=== PATIENT | female | born 1970 | race Caucasian/White ===

== ENCOUNTER 2016-02-24 08:11 | Inpatient (IN) | payer SELFPAY ==
[2016-02-24] MEDS ORDERED: PANTOPRAZOLE 40 MG VIAL IV ONE (08:56)
[2016-02-24] MEDS ORDERED: NS 1,000 ML IV ONE ×2 (08:56)
[2016-02-24] MEDS ORDERED: ONDANSETRON HCL 4 MG/2 ML VIAL IV ONE (08:56)
[2016-02-24] MEDS ORDERED: GI COCKTAIL 30 ML DOSE PO ONE (08:56)
--- NOTE | 2016-02-24 08:58 | EDPRACDOC ---
<Ria Zamorano N - Last Filed: 02/24/16 11:23> - General Information Mode Of Arrival: Ambulance - History of Present Illness Onset: last night Pain Location: Reports: Epigastric, LUQ Pain Context: Reports: Spontaneous (AFTER DRINKING 1 BEER LAST NIGHT.) Pain Quality: Reports: Aching, Burning, Sharp, Stabbing Pain Radiation: Reports: Back (LEFT) Last Menstrual Period: 2 week : No Blood Type: Unknown Adult Abdominal History: Reports: Similar Pain (dx) (PANCREATITIS DUE TO ETOH ABUSE) Female Abdominal History: Reports: UTI Modifying Factors: improves with: Other (ETOH) Female Associated Signs & Symptoms: Reports: Nausea, Vomiting Oral Intake: Decreased Urinary Output: Normal <Mani Dozier - Last Filed: 02/24/16 14:43> - General Information Chief Complaint: Abdominal Pain Stated Complaint: ABD PAIN/ VOMITING Time Seen by Provider: 02/24/16 08:52 Home Medications: Home Medications No Home Medications 02/24/16 Allergies/Adverse Reactions: Allergies Allergy/AdvReac Type Severity Reaction Status Date / Time No Known Allergies Allergy Verified 02/24/16 08:53 - History of Present Illness HPI: PT PRESENTS TO ED WITH N/V EPIGASTRIC/LUQ ABD PAIN THAT IS SHARP STABBING ACHY AND BURNING RADIATES INTO HER BACK STARTED AFTER SHE DRANK A BEER LAST NIGHT. PT STATES SHE HAS H/O PANCREATITIS DUE TO ETOH ABUSE IN THE PAST AND THIS FEELS THE SAME. (Mani Dozier) ED Past Medical History - History Reviewed Yes Nurses notes reviewed and agree except as marked Travel Outside of [place] in the Last 3 Months?: No - Patient Medical History Neurological History: Reports: Seizures Cardiac History: Reports: Hypertension Respiratory History: Reports: COPD GI/ History: Reports: Urinary Tract Infection, Pancreatitis (admitted 06/25/12 SECONDARY TO ETOH USE/ABUSE) Psychological History: Reports: Substance Use Disorder (suboxone). Denies: Depression Systemic History: Reports: Diabetes. Denies: Cancer Surgical History: Denies: Hysterectomy - Family Medical History Reports: Cancer (MOTHER OF LUNG [place]), Cardiac Disorders (FATHER OF [place]) - Social Medical History Smoking Status: Heavy tobacco smoker (5 or more cigarettes/day or daily pipe/ cigar) Social History: Reports: Substance Use Disorder (suboxone) ETOH: Abuse (IN THE PAST) Substance Abuse: None Lives With: Other Lives In: Home <Mani Dozier - Last Filed: 02/24/16 14:43> EDM Review of Systems - Review of Systems ROS Negative Except as Marked: Yes All systems reviewed and were negative except as marked Constitutional: No Symptoms Reported. negative: Fever, Chills, Weakness, Fatigue, Loss of Appetite Eyes: No Symptoms Reported. negative: Redness, Blurred Vision, Double Vision, Discharge, Pain, Light Sensitive, Photophobia Ears: No Symptoms Reported. negative: Pain, Hearing Loss, Drainage, Ear Pulling Throat: No Symptoms Reported. negative: Pain, Swelling Nose: No Symptoms Reported. negative: Congestion, Bleeding, Discharge, Injection, Swelling, Deformity, Ecchymosis, Tender, Abrasion, Laceration Mouth: No Symptoms Reported. negative: Pain, Drooling Respiratory: No Symptoms Reported. negative: Cough, Brassy Cough, Barky Cough, Shortness of Breath, Wheezing, Hemoptysis Cardiovascular: No Symptoms Reported. negative: Chest Pain, Palpitations, Syncope, Edema, Orthopnea, PND, Skin Mottling, Cyanosis Gastrointestinal: Nausea, Pain, Vomiting. negative: Constipation, Diarrhea, Formula Intolerance, Melena Genitourinary: No Symptoms Reported. negative: Dysuria, Hematuria, Frequency, Discharge, Bleeding, Testicular Pain, Neurological: No Symptoms Reported. negative: Headache, Dizziness, Seizure, Numbness, Weakness, Speech Difficulty, Gait Difficulty Musculoskeletal: No Symptoms Reported. negative: Neck, Chestwall, Ribs, Back, Shoulder, Arm, Elbow, Forearm, Wrist, Hand, Pelvis, Hip, Femur, Knee, Leg, Ankle , Foot Integumentary: No Symptoms Reported. negative: Itching, Rash, Bruising, Wound Allergic/Immunologic: No Symptoms Reported. negative: Hives, Itching Hematologic: No Symptoms Reported. negative: Lymphadenopathy, Easy Bruising, Easy Bleeding Endocrine: No Symptoms Reported. negative: Weight Gain, Weight Loss Psychiatric: No Symptoms Reported. negative: Anxiety, Depression, Hallucinations, Insomnia, Suicidal <Mani Dozier - Last Filed: 02/24/16 14:43> - Physical Exam Constitutional: No apparent distress, Alert (Awake) Oriented to: Time, Person, Place - HEENT Head: Normal ( normocephalic) Eye Exam: Normal (PERRL, EOMI, Sclera white) Oropharynx: Normal (Pharynx:Moist without exudate,Gums-no swelling) Tympanic Membrane: Normal ENT EAC: Normal TMJ: Normal Nose: No Symptoms Reported (septum midline) Neck: Normal (FROM, trachea at midline) - Respiratory/Cardiovascular Respiratory: Normal - CTA (BBS clear to auscultation without adventitious sounds ) Cardiovascular: Normal (RRR without murmur, gallop or rub) - GI Auscultation: Normal (NABS) Palpation: Normal (Soft,No rebound or guarding, non distended) Tenderness: Moderate, LUQ, Epigastric [place]'s Sign: Negative - Musculoskeletal Back: Normal (Non-Tender) Extremities: Normal (Normal tone, Pulses 2+ No cyanosis or edema, FROM) - Integumentary Skin: Normal, Warm, Dry Lymphatics: Normal (no adenopathy) - Neurologic Memory Impaired: Normal Motor Function: Normal (Normal tone, Pulses 2+ No cyanosis or edema, FROM) Cranial Nerve: Normal (CN II-X11 intact sensation, strength 5/5) Cerebellar: Normal Mood Description: Normal Perception: Normal <Mani Dozier - Last Filed: 02/24/16 14:43> - Physical Exam Last recorded Vital Signs: Last Vital Signs Temp 98.9 F 02/24/16 14:27 Pulse 99 02/24/16 14:32 Resp 15 02/24/16 14:32 BP 169/88 02/24/16 14:32 Pulse Ox 97 02/24/16 14:32 Oxygen Pulse Oxygen Saturation 95 O2 Device Nasal Cannula Oxygen Flow Rate 2 Fraction of Inspired Oxygen ( FIO2) (Ria Zamorano) (Mani Dozier) - Re-evaluation Re-evaluation 2 Re-evaluation Time: 11:24 (ATTEMPTED PO, PT ABLE TO TAKE VERY LITTLE.) - Results 02/24/16 08:29 02/24/16 09:32 <Ria Zamorano - Last Filed: 02/24/16 11:23> - Differential Diagnosis Pancreatitis, PUD, UTI - Results 02/24/16 08:29 02/24/16 09:32 - EKG EKG #1 EKG Time: 09:17 -: Yes EKG interpreted by me Rate: bpm: 80 [place]: Normal Rhythm: NSR Block: None Hypertrophy: None ST: Normal <Mani Dozier - Last Filed: 02/24/16 14:43> - Results WBC 17.2 xk/uL (3.8-10.8) H 02/24/16 08:29 RBC 5.26 xM/uL (4.20-5.40) 02/24/16 08:29 Hgb 17.6 g/dL (12.0-16.0) H 02/24/16 08:29 Hct 51.9 % (36-47) H 02/24/16 08:29 MCV 99 fL (81-99) 02/24/16 08:29 MCH 33.5 pg (27-32) H 02/24/16 08:29 MCHC 33.9 g/dl (33-36) 02/24/16 08:29 RDW 14.4 % (11.5-14.5) 02/24/16 08:29 Plt Count 300 xk/uL (130-400) 02/24/16 08:29 MPV 8.6 fL (7.4-10.4) 02/24/16 08:29 Neut % (Auto) 70.3 % (45-76) 02/24/16 08:29 Lymph % (Auto) 21.5 % (17-44) 02/24/16 08:29 [place] % (Auto) 7.2 % (3-10) 02/24/16 08:29 Eos % (Auto) 0.5 % (0-5) 02/24/16 08:29 Baso % (Auto) 0.5 % (0-2) 02/24/16 08:29 Absolute Neuts (auto) 12.04 xk/uL (1.7-8.2) H 02/24/16 08:29 Absolute Lymphs (auto) 3.61 xk/uL (0.65-4.75) 02/24/16 08:29 Sodium 137 mEq/L (137-146) 02/24/16 09:32 Potassium 5.1 mEq/L (3.5-5.1) 02/24/16 09:32 Chloride 109 mEq/L (98-107) H 02/24/16 09:32 Carbon Dioxide 15 mMOL/L (22-33) L 02/24/16 09:32 Anion Gap 18 mEq/L (8-16) H 02/24/16 09:32 BUN 9 MG/DL (7-17) 02/24/16 09:32 Creatinine 0.60 MG/DL (0.52-1.04) 02/24/16 09:32 Estimated GFR (MDRD) > 60 mL/min (>=60) 02/24/16 09:32 Glucose 169 MG/DL (70-99) H 02/24/16 09:32 Calculated Osmolality 267 MOs/Kg (270-290) L 02/24/16 09:32 Calcium 8.5 MG/DL (8.4-10.2) 02/24/16 09:32 Corrected Calcium 8.9 MG/DL (8.4-10.2) 02/24/16 09:32 Phosphorus 3.7 MG/DL (2.5-4.5) 02/24/16 09:30 Magnesium 1.40 MG/DL (1.6-2.3) L 02/24/16 09:30 Total Bilirubin 1.8 MG/DL (0.2-1.3) H 02/24/16 09:32 AST 346 IU/L (14-36) H 02/24/16 09:32 ALT 300 IU/L (9-52) H 02/24/16 09:32 Alkaline Phosphatase 149 IU/L (38-126) H 02/24/16 09:32 Lactate Dehydrogenase 815 IU/L (313-618) H 02/24/16 09:32 Total Protein 7.0 G/DL (6.3-8.2) 02/24/16 09:32 Albumin 3.6 G/DL (3.5-5.0) 02/24/16 09:32 Lipase 36493 U/L (23-300) H 02/24/16 09:32 Urine Color [place] 02/24/16 09:20 Urine Clarity Clear 02/24/16 09:20 Urine pH 6.0 (5.0-8.0) 02/24/16 09:20 Ur Specific [place] 1.020 (1.003-1.035) 02/24/16 09:20 Urine Protein 1+ (NEG/TRACE) H 02/24/16 09:20 Urine Glucose (UA) Neg (NEGATIVE) 02/24/16 09:20 Urine Ketones 2+ (NEGATIVE) H 02/24/16 09:20 Urine Occult Blood Neg (NEG/TRACE) 02/24/16 09:20 Urine Nitrite Neg (NEGATIVE) 02/24/16 09:20 Urine Bilirubin Neg (NEGATIVE) 02/24/16 09:20 Urine Urobilinogen 0.2 MG/DL (0-1) 02/24/16 09:20 Ur Leukocyte Esterase Neg (NEGATIVE) 02/24/16 09:20 Urine RBC 5-10 (0-5) H 02/24/16 09:20 Urine WBC 2-5 (0-5) 02/24/16 09:20 Ur Epithelial Cells 4+ 02/24/16 09:20 Urine Bacteria 1+ (NEG/FEW) H 02/24/16 09:20 Urine Mucus Mod (NEG/OCC) H 02/24/16 09:20 Urine Opiates Screen *positive* (NEGATIVE) H 02/24/16 09:20 Ur Oxycodone Screen Neg (NEGATIVE) 02/24/16 09:20 Urine Methadone Screen Neg (NEGATIVE) 02/24/16 09:20 Ur Barbiturates Screen Neg (NEGATIVE) 02/24/16 09:20 Ur Tricyclics Screen Neg (NEGATIVE) 02/24/16 09:20 Ur Phencyclidine Scrn Neg (NEGATIVE) 02/24/16 09:20 Ur Amphetamines Screen Neg (NEGATIVE) 02/24/16 09:20 U Methamphetamines Scrn Neg (NEGATIVE) 02/24/16 09:20 Urine MDMA Screen Neg (NEGATIVE) 02/24/16 09:20 U Benzodiazepines Scrn Neg (NEGATIVE) 02/24/16 09:20 Urine Cocaine Screen Neg (NEGATIVE) 02/24/16 09:20 Ur THC Screen Neg (NEGATIVE) 02/24/16 09:20 Plasma/Serum Ethyl Alc % (<0.01) 02/24/16 09:32 Lab Results 02/24/16 02/24/16 02/24/16 09:32 09:32 09:30 WBC RBC Hgb Hct MCV MCH MCHC RDW Plt Count MPV Neut % (Auto) Lymph % (Auto) [place] % (Auto) Eos % (Auto) Baso % (Auto) Absolute Neuts (auto) Absolute Lymphs (auto) Sodium 137 Potassium 5.1 Chloride 109 H Carbon Dioxide 15 L Anion Gap 18 H BUN 9 Creatinine 0.60 Estimated GFR (MDRD) > 60 Glucose 169 H Calculated Osmolality 267 L Calcium 8.5 Corrected Calcium 8.9 Phosphorus 3.7 Magnesium 1.40 L Total Bilirubin 1.8 H AST 346 H ALT 300 H Alkaline Phosphatase 149 H Lactate Dehydrogenase 815 H Total Protein 7.0 Albumin 3.6 Lipase 83466 H Urine Color Urine Clarity Urine pH Ur Specific [place] Urine Protein Urine Glucose (UA) Urine Ketones Urine Occult Blood Urine Nitrite Urine Bilirubin Urine Urobilinogen Ur Leukocyte Esterase Urine RBC Urine WBC Ur Epithelial Cells Urine Bacteria Urine Mucus Urine Opiates Screen Ur Oxycodone Screen Urine Methadone Screen Ur Barbiturates Screen Ur Tricyclics Screen Ur Phencyclidine Scrn Ur Amphetamines Screen U Methamphetamines Scrn Urine MDMA Screen U Benzodiazepines Scrn Urine Cocaine Screen Ur THC Screen Plasma/Serum Ethyl Alc 02/24/16 02/24/16 02/24/16 09:20 09:20 08:29 WBC 17.2 H RBC 5.26 Hgb 17.6 H Hct 51.9 H MCV 99 MCH 33.5 H MCHC 33.9 RDW 14.4 Plt Count 300 MPV 8.6 Neut % (Auto) 70.3 Lymph % (Auto) 21.5 [place] % (Auto) 7.2 Eos % (Auto) 0.5 Baso % (Auto) 0.5 Absolute Neuts (auto) 12.04 H Absolute Lymphs (auto) 3.61 Sodium Potassium Chloride Carbon Dioxide Anion Gap BUN Creatinine Estimated GFR (MDRD) Glucose Calculated Osmolality Calcium Corrected Calcium Phosphorus Magnesium Total Bilirubin AST ALT Alkaline Phosphatase Lactate Dehydrogenase Total Protein Albumin Lipase Urine Color [place] Urine Clarity Clear Urine pH 6.0 Ur Specific [place] 1.020 Urine Protein 1+ H Urine Glucose (UA) Neg Urine Ketones 2+ H Urine Occult Blood Neg Urine Nitrite Neg Urine Bilirubin Neg Urine Urobilinogen 0.2 Ur Leukocyte Esterase Neg Urine RBC 5-10 H Urine WBC 2-5 Ur Epithelial Cells 4+ Urine Bacteria 1+ H Urine Mucus Mod H Urine Opiates Screen *positive* H Ur Oxycodone Screen Neg Urine Methadone Screen Neg Ur Barbiturates Screen Neg Ur Tricyclics Screen Neg Ur Phencyclidine Scrn Neg Ur Amphetamines Screen Neg U Methamphetamines Scrn Neg Urine MDMA Screen Neg U Benzodiazepines Scrn Neg Urine Cocaine Screen Neg Ur THC Screen Neg Plasma/Serum Ethyl Alc (Ria Zamorano) - Departure Disposition: Admit IP To This Hospital Education/Counseling Given To: Patient Education/Counseling Given Regarding: Diagnosis, Treatment, Prognosis Decision to Admit Time: 11:28 Decision to admit date: 02/24/16 Decision to admit: from ED - Physician Consulted Hospitalist Time Called: 11:25 Provider Called: Emmie Ricks Time [place] Returned Call: 11:28 <Ria Zamorano - Last Filed: 02/24/16 11:23> <Mani Dozier - Last Filed: 02/24/16 14:43> - Departure Condition: Stable Final Diagnosis: Alcoholic ketoacidosis, Hypertensive urgency Alcoholic pancreatitis Qualifiers: Chronicity: acute Acute pancreatitis complication: unspecified Qualified Code(s ): K85.20 - Alcohol induced acute pancreatitis without necrosis or infection Alcohol withdrawal syndrome Qualifiers: Complication of substance-induced condition: with unspecified complication Qualified Code(s): F10.239 - Alcohol dependence with withdrawal, unspecified CIWA - Clinical [place] Withdrawal Assessment Re-evaluation 1 Nausea & Vomitting: Inermittent Nausea with Dry Heaves Tremor: Not visible, but can be felt fingertip to fingertip Paroxysmal Sweats: No sweat visible Anxiety: Mildly anxious Tactile Disturbances: Very mild itching, pins and needles, burning or numbness Auditory Disturbances: None Visual Disturbances: None Headache, Fullness in Head: Not Present Orientation & clouding of Sensorium: Oriented and can do serial additions Total CIWA Score: 5 <Ria Zamorano - Last Filed: 02/24/16 11:23>
[2016-02-24] MEDS ORDERED: HYDROmorphone 1 MG INJECTION IV ONE ×2 (09:10→11:37)
[2016-02-24 09:18] LABS: AUTOMATED BASOPHIL 0.5 % (0-2); AUTOMATED EOSINOPHIL 0.5 % (0-5); AUTOMATED LYMPH 21.5 % (17-44); AUTOMATED MONOCYTE 7.2 % (3-10); AUTOMATED NEUTROPHIL 70.3 % (45-76); MPV 8.6 fL (7.4-10.4)
[2016-02-24 09:28] LABS: ALL NEG? NO
[2016-02-24 09:37] LABS: MDMA* NEG (NEGATIVE); METHAMPHETAMINES NEG (NEGATIVE); OXYCODONE NEG (NEGATIVE)
[2016-02-24 09:38] LABS: LEUKOCYTES/URINE NEG (NEGATIVE); NITRITE/URINE NEG (NEGATIVE); URINE OCCULT BLOOD NEG (NEG/TRACE)
[2016-02-24 09:52] LABS: BLOOD UREA NITROGEN 9 MG/DL (7-17); CALC CORRECTED 8.9 MG/DL (8.4-10.2); CALCIUM 8.5 MG/DL (8.4-10.2); CALCULATED OSMOLALITY 267 MOs/Kg (270-290); CHLORIDE 109 mEq/L (98-107); ETOH-MGDL < 10 mg/dL; GLUCOSE 169 MG/DL (70-99); SODIUM LEVEL 137 mEq/L (137-146)
[2016-02-24] MEDS ORDERED: DIAZEPAM 10 MG/2 ML TUBEX IV ONE (11:25)
[2016-02-24] MEDS ORDERED: LABETALOL 20 MG/4 ML SYRINGE IV ONE (11:36)
[2016-02-24] MEDS ORDERED: GLUCAGON 1 MG VIAL SQ PRN (12:20)
[2016-02-24] MEDS ORDERED: Aluminum;Magnesium;Simethicone 30 ML UDC PO PRN (12:20)
[2016-02-24] MEDS ORDERED: ONDANSETRON HCL 4 MG/2 ML VIAL IV PRN (12:20)
[2016-02-24] MEDS ORDERED: Albuterol/Ipratropium Neb 3 ML NEB NEB PRN (12:20)
[2016-02-24] MEDS ORDERED: MAGNESIUM HYDROXIDE 30 ML BOTTLE PO PRN (12:20)
[2016-02-24] MEDS ORDERED: DEXTROSE 25 GM/50 ML PFS IV PRN (12:20)
[2016-02-24] MEDS ORDERED: GLUCOSE (ORAL GEL) 15 GM TUBE PO PRN (12:20)
[2016-02-24] MEDS ORDERED: SODIUM CHLORIDE 0.9% 3 ML FLUSH FLUSH PRN (12:20)
[2016-02-24] MEDS ORDERED: TEMAZEPAM 15 MG CAP PO PRN (12:20)
[2016-02-24] MEDS ORDERED: ACETAMINOPHEN 325 MG/TAB TABLET PO PRN (12:20)
--- NOTE | 2016-02-24 12:26 | HISTPHYS ---
- History of Present Illness PT PRESENTS TO ED WITH N/V EPIGASTRIC/LUQ ABD PAIN THAT IS SHARP STABBING ACHY AND BURNING RADIATES INTO HER BACK STARTED AFTER SHE DRANK A BEER LAST NIGHT. PT STATES SHE HAS H/O PANCREATITIS DUE TO ETOH ABUSE IN THE PAST AND THIS FEELS THE SAME. Onset: last night Pain Location: Reports: Epigastric, LUQ Pain Context: Reports: Spontaneous (AFTER DRINKING 1 BEER LAST NIGHT.) Pain Quality: Reports: Aching, Burning, Sharp, Stabbing Pain Radiation: Reports: Back (LEFT) Last Menstrual Period: 2 week : No Blood Type: Unknown Adult Abdominal History: Reports: Similar Pain (dx) (PANCREATITIS DUE TO ETOH ABUSE) Female Abdominal History: Reports: UTI Modifying Factors: improves with: Other (ETOH) Female Associated Signs & Symptoms: Reports: Nausea, Vomiting Oral Intake: Decreased Urinary Output: Normal Above information per the emergency department. After discussing at length with the patient she told me that she drinks a 12 pack a day. She used to drink whiskey with her beer but she has stopped that. She has been drinking heavily for several weeks. - Medical History Cardiac History: Reports: Hypertension Respiratory History: Reports: COPD GI/ History: Reports: Urinary Tract Infection, Pancreatitis (Patient has had 4 adm at other hospitals and 3 adm at our hospital) Musculoskeletal History: Reports: No Significant History Systemic History: Reports: Diabetes. Denies: Cancer Neurological History: Reports: Seizures Psychological History: Reports: Substance Use Disorder (suboxone). Denies: Depression - Surgical History Reports: No Significant History. Denies: Hysterectomy - Medictions/Allergies Allergies No Known Allergies Allergy (Verified 02/24/16 08:53) Current Medication List: Reviewed Home Medications No Home Medications 02/24/16 - Family History Reports: Cancer (MOTHER OF LUNG [place]), Cardiac Disorders (FATHER OF [place]) - Social History Travel Outside of US in the Last 3 Months?: No Lives: Alone Smoking Status: Heavy tobacco smoker (5 or more cigarettes/day or daily pipe/ cigar) Social History: Reports: Substance Use Disorder (suboxone) - Review of Systems Constitutional: No Symptoms Reported (No Fever, chills, wt loss/gain, diaphoresis,fatigue/malaise.) Eyes: No Symptoms Reported (No blurry vision, visual changes, eye pain, or eye redness.) Ears: No Symptoms Reported (No ear pain or discharge) Nose: No Symptoms Reported (No nasal discharge/congestion or bleeding) Mouth: No Symptoms Reported (No oropharyngeal lesions or erythema) Throat/Neck: No Symptoms Reported (No throat pain or swelling.No oropharyngeal lesions or erythema.) Respiratory: No Symptoms Reported (No cough, wheezing, or shortness of breath.) Cardiovascular: No Symptoms Reported (No chest pain or palpitations.) Gastrointestinal: Nausea, Vomiting, Abdominal Pain Genitourinary: No Symptoms Reported (No dysuria or hematuria.) Neurological: No Symptoms Reported (No headache, dizziness, seizures, or focal weakness.) Hematologic: No Symptoms Reported (No chronic anemia, bleeding, or easy bruising.), Other (Lymphatics- no lymph node swelling or pain.) Endocrine: No Symptoms Reported (No thyroid issues, polyuria, or polydipsia.) Psychiatric: No Symptoms Reported (Fully oriented, with normal and appropriate affect.) - Physical Exam Vital Signs: Initial Vitals Temperature 98.9 F 02/24/16 08:15 Pulse Rate 88 02/24/16 08:15 Respiratory Rate 22 02/24/16 08:15 Blood Pressure 178/116 H 02/24/16 08:15 Pulse Oxygen Saturation 96 02/24/16 08:15 Constitutional: Distress (Moderate discomfort). negative: Well nourished, Well appearing Oriented to: Time, Person, Place - HEENT Head: Normal (normocephalic, atraumatic.), Other (No cervical lymphadenopathy. No supraclavicular lymphadenopathy. Neck: No palpable mass, supple , trachea midline.) Eye: Normal (pupils equal, reactive to light, and round; EOMI, Sclera white) Oropharynx: Normal (Pharynx: Moist without exudate,Gums-no swelling, No oropharyngeal lesions or erythema, Mucous membranes are dry.) Tympanic Membrane: Normal (no discharge) ENT EAC: Normal (No oropharyngeal lesions or erythema. Mucous membranes are dry. ) TMJ: Normal Nose: No Symptoms Reported (septum midline, Nares patent, without discharge or bleeding.) Respiratory: Normal - CTA (Clear to auscultation bilaterally. No wheezing, rales , rhonchi. Chest wall movements are symmetric. No use of accessory muscles to breathe.) Cardiovascular: Normal (RRR , Normal S1, S2. No murmurs, rubs, or gallops. PMI non-displaced. Carotids: no carotid bruits. No bradycardia or tachycardia. DP pulses 2+ bilaterally.) - GI Auscultation: Decreased Palpation: Normal (Soft,non distended,nontender. No hepatosplenomegaly.) Tenderness: Diffuse, Severe, Epigastric [place]'s Sign: Negative - Musculoskeletal Back: Normal (Non-Tender) Extremities: Normal (Normal tone, DP pulses 2+ bilaterally, No cyanosis or edema bilaterally, FROM bilaterally.) - Integumentary Skin: Normal (Clean, dry, and intact. No rashes. No lesions.) Lymphatics: Normal (No cervical lymphadenopathy. No supraclavicular lymphadenopathy.) - Neurologic Memory Impaired: Normal Motor Function: Normal (Motor 5/5 throughout.Normal tone, Pulses 2+ No cyanosis or edema, FROM) Cranial Nerve: Normal (CN II-XII intact sensation, strength 5/5) Cerebellar: Normal (Babinski: toes downgoing bilaterally. Intact Finger to nose. Sensory grossly intact to light touch. Intact rapid alternating movements bilaterally. No pronator drift.) Mood Description: Normal (Fully oriented. Normal and appropriate affect.) Perception: Normal (Normal and appropriate affect.) - Focused CV Perfusion Exam Vital Signs: Last Vital Signs Temp 98.9 F 02/24/16 08:15 Pulse 88 02/24/16 12:13 Resp 16 02/24/16 12:13 BP 199/106 H 02/24/16 12:13 Pulse Ox 94 02/24/16 12:13 - Lab Results Laboratory Results - last 24 hr 02/24/16 02/24/16 02/24/16 08:29 09:20 09:20 WBC 17.2 H RBC 5.26 Hgb 17.6 H Hct 51.9 H MCV 99 MCH 33.5 H MCHC 33.9 RDW 14.4 Plt Count 300 MPV 8.6 Neut % (Auto) 70.3 Lymph % (Auto) 21.5 [place] % (Auto) 7.2 Eos % (Auto) 0.5 Baso % (Auto) 0.5 Absolute Neuts (auto) 12.04 H Absolute Lymphs (auto) 3.61 Sodium Potassium Chloride Carbon Dioxide Anion Gap BUN Creatinine Estimated GFR (MDRD) Glucose Calculated Osmolality Calcium Corrected Calcium Total Bilirubin AST ALT Alkaline Phosphatase Lactate Dehydrogenase Total Protein Albumin Lipase Urine Color [place] Urine Clarity Clear Urine pH 6.0 Ur Specific [place] 1.020 Urine Protein 1+ H Urine Glucose (UA) Neg Urine Ketones 2+ H Urine Occult Blood Neg Urine Nitrite Neg Urine Bilirubin Neg Urine Urobilinogen 0.2 Ur Leukocyte Esterase Neg Urine RBC 5-10 H Urine WBC 2-5 Ur Epithelial Cells 4+ Urine Bacteria 1+ H Urine Mucus Mod H Urine Opiates Screen *positive* H Ur Oxycodone Screen Neg Urine Methadone Screen Neg Ur Barbiturates Screen Neg Ur Tricyclics Screen Neg Ur Phencyclidine Scrn Neg Ur Amphetamines Screen Neg U Methamphetamines Scrn Neg Urine MDMA Screen Neg U Benzodiazepines Scrn Neg Urine Cocaine Screen Neg Ur THC Screen Neg Plasma/Serum Ethyl Alc 02/24/16 02/24/16 09:32 09:32 WBC RBC Hgb Hct MCV MCH MCHC RDW Plt Count MPV Neut % (Auto) Lymph % (Auto) [place] % (Auto) Eos % (Auto) Baso % (Auto) Absolute Neuts (auto) Absolute Lymphs (auto) Sodium 137 Potassium 5.1 Chloride 109 H Carbon Dioxide 15 L Anion Gap 18 H BUN 9 Creatinine 0.60 Estimated GFR (MDRD) > 60 Glucose 169 H Calculated Osmolality 267 L Calcium 8.5 Corrected Calcium 8.9 Total Bilirubin 1.8 H AST 346 H ALT 300 H Alkaline Phosphatase 149 H Lactate Dehydrogenase 815 H Total Protein 7.0 Albumin 3.6 Lipase 16624 H Urine Color Urine Clarity Urine pH Ur Specific [place] Urine Protein Urine Glucose (UA) Urine Ketones Urine Occult Blood Urine Nitrite Urine Bilirubin Urine Urobilinogen Ur Leukocyte Esterase Urine RBC Urine WBC Ur Epithelial Cells Urine Bacteria Urine Mucus Urine Opiates Screen Ur Oxycodone Screen Urine Methadone Screen Ur Barbiturates Screen Ur Tricyclics Screen Ur Phencyclidine Scrn Ur Amphetamines Screen U Methamphetamines Scrn Urine MDMA Screen U Benzodiazepines Scrn Urine Cocaine Screen Ur THC Screen Plasma/Serum Ethyl Alc - Assessment (1) Alcoholic pancreatitis K85.20 - ALCOHOL INDUCED ACUTE PANCREATITIS WITHOUT NECROSIS OR INFCT Acute Qualifiers: Chronicity: acute Acute pancreatitis complication: unspecified Qualified Code(s): K85.20 - Alcohol induced acute pancreatitis without necrosis or infection Admit patient to hospital hydrate and pain control. Start with clear liquids advance as tolerated when able. (2) Alcohol withdrawal syndrome F10.239 - ALCOHOL DEPENDENCE WITH WITHDRAWAL, UNSPECIFIED Acute Present on Admission: Yes Qualifiers: Complication of substance-induced condition: with unspecified complication Qualified Code(s): F10.239 - Alcohol dependence with withdrawal, unspecified Start alcohol withdrawal protocol patient very shaky with an elevated blood pressure. (3) Alcoholic ketoacidosis E87.2 - ACIDOSIS Acute Present on Admission: Yes Hydrate and treat underlying cause. (4) Hypertensive urgency I16.0 - HYPERTENSIVE URGENCY Acute Present on Admission: Yes Start IV metoprolol and hydralazine for blood pressure control. (5) Diabetes mellitus type 2 E11.9 - TYPE 2 DIABETES MELLITUS WITHOUT COMPLICATIONS Active Present on Admission: Yes Continue treatment with home medication and plan (6) Tobacco user Z72.0 - TOBACCO USE Active Present on Admission: Yes Will counseled to quit smoking once patient more stable (7) Alcohol abuse F10.10 - ALCOHOL ABUSE, UNCOMPLICATED Acute Present on Admission: Yes Patient needs to quit alcohol immediately. - Plan Due to the presence of and/or the risk of deterioration, my attendance to this patient required critical care time, including assessment/reassessment, documentation, ordering and interpreting ancillary studies, discussion with staff and consultants,patient and family, and excludes time spent on separately billable procedures. In summary, this patient is acutely and critically ill. The patient requires treatment of vital organ failure and measures to prevent further life-threatening deterioration of condition. Case Care Discussed with: Patient, Nursing Staff Total Time: 55 minutes Critical Care: Yes [place] Time (>50% in counseling/coordination): No
[2016-02-24] MEDS ORDERED: LORAZEPAM 1 MG TAB PO PRN ×2 (12:27)
[2016-02-24] MEDS ORDERED: DICYCLOMINE 20 MG TAB PO PRN (12:27)
[2016-02-24] MEDS ORDERED: LORAZEPAM 2 MG/ML VIAL IV PRN ×3 (12:27)
[2016-02-24] MEDS: NS 1,000 ML IV SCH ×3 (12:45→23:58)
[2016-02-24] MEDS ORDERED: LORAZEPAM 1 MG TAB PO SCH (13:00)
[2016-02-24] MEDS ORDERED: Alcohol Withdrawal Scale Orders XX SCH (13:00)
[2016-02-24] MEDS: MORPHINE 2 MG/ML INJECTION IV PRN ×3 (13:07→20:26)
[2016-02-24] MEDS: LORAZEPAM 1 MG TAB PO SCH ×3 (13:08→23:51)
[2016-02-24] MEDS: NICOTINE 21 MG PATCH TOP SCH (13:09)
[2016-02-24] MEDS ORDERED: hydrALAZINE 20 MG/ML VIAL IV PRN (14:19)
[2016-02-24] MEDS: FOLIC ACID 1 MG, THIAMINE 100 MG, VITAMINS, MULTIPLE 10 ML in NS 1,000 ML IV SCH ×4 (14:53)
[2016-02-24] MEDS: BuPROPion 150 MG SR TAB PO SCH (14:54)
[2016-02-24] MEDS ORDERED: Vaccine Screening Complete SCH (16:00)
[2016-02-24] MEDS: REGULAR INSULIN 100 UNITS/ML - 3 ML VIAL SQ SCH ×2 (18:12→23:59)
[2016-02-24] MEDS: SODIUM CHLORIDE 0.9% 3 ML FLUSH FLUSH SCH (18:17)
[2016-02-24] MEDS: ENOXAPARIN 40 MG/0.4 ML PFS SQ SCH (18:17)
[2016-02-24] MEDS: METOPROLOL TARTRATE 100 MG TAB PO SCH (20:19)
[2016-02-25] MEDS: MORPHINE 2 MG/ML INJECTION IV PRN ×3 (01:53→07:49)
[2016-02-25] MEDS: NS 1,000 ML IV SCH ×4 (05:08→17:41)
[2016-02-25] MEDS: SODIUM CHLORIDE 0.9% 3 ML FLUSH FLUSH SCH ×2 (05:09→17:34)
[2016-02-25] MEDS: LORAZEPAM 1 MG TAB PO PRN (05:35)
[2016-02-25] MEDS: REGULAR INSULIN 100 UNITS/ML - 3 ML VIAL SQ SCH ×3 (05:55→17:32)
[2016-02-25 06:20] LABS: AUTOMATED BASOPHIL 0.4 % (0-2); AUTOMATED EOSINOPHIL 1.1 % (0-5); AUTOMATED MONOCYTE 7.9 % (3-10); AUTOMATED NEUTROPHIL 70.6 % (45-76)
[2016-02-25 06:40] LABS: BLOOD UREA NITROGEN 8 MG/DL (7-17); CALC CORRECTED 9.2 MG/DL (8.4-10.2); CALCULATED OSMOLALITY 256 MOs/Kg (270-290); CHLORIDE 108 mEq/L (98-107); GLUCOSE 90 MG/DL (70-99); SODIUM LEVEL 134 mEq/L (137-146); TOTAL PROTEIN 5.8 G/DL (6.3-8.2)
[2016-02-25] MEDS: METOPROLOL TARTRATE 100 MG TAB PO SCH ×2 (07:49→20:46)
[2016-02-25] MEDS: BuPROPion 150 MG SR TAB PO SCH (07:49)
[2016-02-25] MEDS ORDERED: HYDROmorphone 1 MG INJECTION IV ONE (08:42)
[2016-02-25] MEDS: LORAZEPAM 1 MG TAB PO SCH ×3 (08:45→17:33)
[2016-02-25] MEDS: HYDROmorphone 1 MG INJECTION IV PRN ×3 (11:09→20:47)
[2016-02-25] MEDS: NICOTINE 21 MG PATCH TOP SCH (11:36)
[2016-02-25] MEDS ORDERED: VITAMINS,PRENATAL TABLET PO SCH (12:00)
[2016-02-25] MEDS ORDERED: THIAMINE 100 MG TAB PO SCH (12:00)
[2016-02-25] MEDS: FOLIC ACID 1 MG, THIAMINE 100 MG, VITAMINS, MULTIPLE 10 ML in NS 1,000 ML IV SCH ×4 (13:13)
--- NOTE | 2016-02-25 17:09 | GENMEDPROG ---
Subjective Note: Patient still with some pain lipase is decreasing. She is tolerating sips of clears. Notes Reviewed: Yes Events from last night noted and discussed with Clinical Staff Current Medication List: Reviewed Currently: Reports: Abdominal Pain. Denies: Nausea and Vomiting DVT Prophylaxis: Yes - Physical Examination Vital Signs and I&O: Last Vital Signs Temp 98.7 F 02/25/16 15:43 Pulse 85 02/25/16 16:06 Resp 16 02/25/16 15:43 BP 131/88 02/25/16 15:43 Pulse Ox 94 02/25/16 15:43 Oxygen Pulse Oxygen Saturation 94 O2 Device Room Air Oxygen Flow Rate 2 Fraction of Inspired Oxygen ( FIO2) Intake & Output 02/22/16 02/23/16 02/24/16 02/25/16 23:59 23:59 23:59 23:59 Intake Total 3858 4958 Output Total 700 2050 Balance 3158 2908 Patient's weight 58.695 kg 59.08 kg General: Alert HEENT: Normal (Normocephalic, atraumatic;EOMI.Sclera white, Nares patent, without discharge or bleeding. No oropharyngeal lesions or erythema. Mucous membranes are dry.) Neck: Non-tender, Full range of motion, Normal Trachea alignment, Normal inspection (No cervical lymphadenopathy. No supraclavicular lymphadenopathy.), No Masses palpable, Supple Lymphatics: Normal (No cervical lymphadenopathy. No supraclavicular lymphadenopathy.) Respiratory: Normal - CTA (Clear to auscultation bilaterally. No wheezing, rales , rhonchi. Chest wall movements are symmetric. No use of accessory muscles to breathe.) Cardiovascular: Regular rate and rhythm (No bradycardia or tachycardia), Normal S1, No Gallops,Rubs/Murmurs, Normal S2, Good Pedal Pulses (DP pulses 2+ bilaterally) GI: Soft, Tenderness. negative: Normal bowel sounds, Rebound, Guarding Extremities/Musculoskeletal: Normal pulses (DP pulses 2+ bilaterally) Skin: Warm,Dry and Intact, No rashes, No significant lesion Neurological: Strength at 5/5 X4 ext (Motor 5/5 throughout.), Normal tone, Cranial nerves 3-12 NL ( 2-12 grossly intact.) Psych/Mental Status: Appropriate, Normal Affect Lab/DI/Studies Reviewed: Laboratory Results - last 24 hr 01/02/25/16 02/25/16 23:42 05:15 05:15 WBC 13.4 H RBC 4.18 L Hgb 13.8 D Hct 41.3 MCV 99 MCH 33.0 H MCHC 33.5 RDW 14.3 Plt Count 179 MPV 9.0 Neut % (Auto) 70.6 Lymph % (Auto) 20.0 [place] % (Auto) 7.9 Eos % (Auto) 1.1 Baso % (Auto) 0.4 Absolute Neuts (auto) 9.38 H Absolute Lymphs (auto) 2.68 Sodium 134 L Potassium 3.9 Chloride 108 H Carbon Dioxide 18 L Anion Gap 12 BUN 8 Creatinine 0.50 L Estimated GFR (MDRD) > 60 Glucose 90 POC Capillary Glucose 107 H Calculated Osmolality 256 L Calcium 8.0 L Corrected Calcium 9.2 Total Bilirubin 1.6 H AST 162 H ALT 201 H Alkaline Phosphatase 110 Total Protein 5.8 L Albumin 2.8 L Lipase 02/25/16 02/25/16 02/25/16 05:15 05:43 11:54 WBC RBC Hgb Hct MCV MCH MCHC RDW Plt Count MPV Neut % (Auto) Lymph % (Auto) [place] % (Auto) Eos % (Auto) Baso % (Auto) Absolute Neuts (auto) Absolute Lymphs (auto) Sodium Potassium Chloride Carbon Dioxide Anion Gap BUN Creatinine Estimated GFR (MDRD) Glucose POC Capillary Glucose 109 H 117 H Calculated Osmolality Calcium Corrected Calcium Total Bilirubin AST ALT Alkaline Phosphatase Total Protein Albumin Lipase 5804 H 02/25/16 16:28 WBC RBC Hgb Hct MCV MCH MCHC RDW Plt Count MPV Neut % (Auto) Lymph % (Auto) [place] % (Auto) Eos % (Auto) Baso % (Auto) Absolute Neuts (auto) Absolute Lymphs (auto) Sodium Potassium Chloride Carbon Dioxide Anion Gap BUN Creatinine Estimated GFR (MDRD) Glucose POC Capillary Glucose 95 Calculated Osmolality Calcium Corrected Calcium Total Bilirubin AST ALT Alkaline Phosphatase Total Protein Albumin Lipase - Assessment (1) Alcoholic pancreatitis Acute K85.20 - ALCOHOL INDUCED ACUTE PANCREATITIS WITHOUT NECROSIS OR INFCT Qualifiers: Chronicity: acute Acute pancreatitis complication: unspecified Qualified Code(s): K85.20 - Alcohol induced acute pancreatitis without necrosis or infection Comment/Plan: Continue pain control and hydration advance diet as tolerated. (2) Alcohol withdrawal syndrome Acute F10.239 - ALCOHOL DEPENDENCE WITH WITHDRAWAL, UNSPECIFIED Qualifiers: Complication of substance-induced condition: with unspecified complication Qualified Code(s): F10.239 - Alcohol dependence with withdrawal, unspecified Comment/Plan: Continue alcohol withdrawal protocol. Vital signs stabilizing. (3) Alcoholic ketoacidosis Acute E87.2 - ACIDOSIS Comment/Plan: Resolving. (4) Hypertensive urgency Acute I16.0 - HYPERTENSIVE URGENCY Comment/Plan: Stable and improved. (5) Diabetes mellitus type 2 Active E11.9 - TYPE 2 DIABETES MELLITUS WITHOUT COMPLICATIONS Comment/Plan: Continue treatment with home medication and plan (6) Tobacco user Active Z72.0 - TOBACCO USE Comment/Plan: Will counseled to quit smoking once patient more stable (7) Alcohol abuse Acute F10.10 - ALCOHOL ABUSE, UNCOMPLICATED Comment/Plan: Patient needs to quit alcohol immediately. - Plan Continue hydration and pain control. Case Care Discussed with: Patient Education/Counseling Given To: Patient Education/Counseling Given Regarding: Diagnosis, Treatment, Prognosis Total Time: 45 min Critical Care: No Couseling Time (>50% in counseling/coordination): No
[2016-02-25] MEDS: ENOXAPARIN 40 MG/0.4 ML PFS SQ SCH (17:35)
[2016-02-26] MEDS: LORAZEPAM 1 MG TAB PO SCH ×5 (01:30→17:40)
[2016-02-26] MEDS: REGULAR INSULIN 100 UNITS/ML - 3 ML VIAL SQ SCH ×4 (01:31→17:22)
[2016-02-26] MEDS: HYDROmorphone 1 MG INJECTION IV PRN ×7 (01:38→21:57)
[2016-02-26] MEDS: Albuterol/Ipratropium Neb 3 ML NEB NEB SCH ×4 (02:33→20:05)
[2016-02-26] MEDS: NS 1,000 ML IV SCH ×3 (04:28→12:12)
[2016-02-26] MEDS: SODIUM CHLORIDE 0.9% 3 ML FLUSH FLUSH SCH ×2 (04:45→17:23)
[2016-02-26] MEDS: BuPROPion 150 MG SR TAB PO SCH (07:54)
[2016-02-26] MEDS: METOPROLOL TARTRATE 100 MG TAB PO SCH ×2 (07:55→21:14)
[2016-02-26] MEDS: LORAZEPAM 1 MG TAB PO PRN (10:24)
[2016-02-26] MEDS: NICOTINE 21 MG PATCH TOP SCH (12:13)
[2016-02-26] MEDS: FOLIC ACID 1 MG, THIAMINE 100 MG, VITAMINS, MULTIPLE 10 ML in NS 1,000 ML IV SCH ×4 (12:14)
--- NOTE | 2016-02-26 17:31 | GENMEDPROG ---
Subjective Note: Tolerating clears will advance diet as tolerated. Pain significantly decreased. Notes Reviewed: Yes Events from last night noted and discussed with Clinical Staff Current Medication List: Reviewed Currently: Reports: Abdominal Pain DVT Prophylaxis: Yes - Physical Examination Vital Signs and I&O: Last Vital Signs Temp 97.4 F L 02/26/16 16:00 Pulse 88 02/26/16 16:54 Resp 18 02/26/16 16:00 BP 144/90 02/26/16 16:00 Pulse Ox 96 02/26/16 16:00 Oxygen Pulse Oxygen Saturation 96 O2 Device Room Air Oxygen Flow Rate 2 Fraction of Inspired Oxygen ( FIO2) Intake & Output 02/23/16 02/24/16 02/25/16 02/26/16 23:59 23:59 23:59 23:59 Intake Total 3858 7218 1288 Output Total 700 3100 1250 Balance 3158 4118 38 Patient's weight 58.695 kg 59.08 kg 62.959 kg General: Alert, Oriented x3, No acute distress, Well appearing, Well nourished HEENT: Normal (Normocephalic, atraumatic;EOMI.Sclera white, Nares patent, without discharge or bleeding. No oropharyngeal lesions or erythema. Mucous membranes are dry.) Neck: Non-tender, Full range of motion, Normal Trachea alignment, Normal inspection (No cervical lymphadenopathy. No supraclavicular lymphadenopathy.), No Masses palpable, Supple Lymphatics: Normal (No cervical lymphadenopathy. No supraclavicular lymphadenopathy.) Respiratory: Normal - CTA (Clear to auscultation bilaterally. No wheezing, rales , rhonchi. Chest wall movements are symmetric. No use of accessory muscles to breathe.) Cardiovascular: Regular rate and rhythm (No bradycardia or tachycardia), Normal S1, No Gallops,Rubs/Murmurs, Normal S2, Good Pedal Pulses (DP pulses 2+ bilaterally) GI: Tenderness. negative: Normal bowel sounds, Rebound, Guarding Extremities/Musculoskeletal: Normal pulses (DP pulses 2+ bilaterally) Skin: Warm,Dry and Intact, No rashes, No significant lesion Neurological: Strength at 5/5 X4 ext (Motor 5/5 throughout.), Normal tone, Cranial nerves 3-12 NL ( 2-12 grossly intact.) Psych/Mental Status: Appropriate, Normal Affect Lab/DI/Studies Reviewed: Laboratory Results - last 24 hr 02/25/16 02/26/16 02/26/16 23:45 04:42 05:05 POC Capillary Glucose 90 84 Lipase 927 H 02/26/16 02/26/16 12:02 17:20 POC Capillary Glucose 113 H 95 Lipase - Assessment (1) Alcoholic pancreatitis Acute K85.20 - ALCOHOL INDUCED ACUTE PANCREATITIS WITHOUT NECROSIS OR INFCT Qualifiers: Chronicity: acute Acute pancreatitis complication: unspecified Qualified Code(s): K85.20 - Alcohol induced acute pancreatitis without necrosis or infection Comment/Plan: Continue pain control and hydration advance diet as tolerated. (2) Alcohol withdrawal syndrome Acute F10.239 - ALCOHOL DEPENDENCE WITH WITHDRAWAL, UNSPECIFIED Qualifiers: Complication of substance-induced condition: with unspecified complication Qualified Code(s): F10.239 - Alcohol dependence with withdrawal, unspecified Comment/Plan: Continue alcohol withdrawal protocol. Vital signs stabilizing. (3) Alcoholic ketoacidosis Resolved E87.2 - ACIDOSIS Comment/Plan: Resolving. (4) Hypertensive urgency Resolved I16.0 - HYPERTENSIVE URGENCY Comment/Plan: Stable and improved. (5) Diabetes mellitus type 2 Active E11.9 - TYPE 2 DIABETES MELLITUS WITHOUT COMPLICATIONS Comment/Plan: Continue treatment with home medication and plan (6) Tobacco user Active Z72.0 - TOBACCO USE Comment/Plan: Will counseled to quit smoking once patient more stable (7) Alcohol abuse Acute F10.10 - ALCOHOL ABUSE, UNCOMPLICATED Comment/Plan: Patient needs to quit alcohol immediately. - Plan Continue hydration and pain control. Disposition Plan: home Case Care Discussed with: Patient, Nursing Staff Education/Counseling Given To: Patient Education/Counseling Given Regarding: Diagnosis, Treatment, Prognosis Total Time: 45 min Critical Care: No Couseling Time (>50% in counseling/coordination): No
[2016-02-26] MEDS: ENOXAPARIN 40 MG/0.4 ML PFS SQ SCH (17:40)
[2016-02-27] MEDS: REGULAR INSULIN 100 UNITS/ML - 3 ML VIAL SQ SCH ×2 (01:05→06:48)
[2016-02-27] MEDS: LORAZEPAM 1 MG TAB PO SCH ×2 (01:06→08:13)
[2016-02-27] MEDS: HYDROmorphone 1 MG INJECTION IV PRN ×3 (01:06→09:58)
[2016-02-27] MEDS: Albuterol/Ipratropium Neb 3 ML NEB NEB SCH ×3 (02:18→13:56)
[2016-02-27 04:04] VITALS: BMI 25.7
[2016-02-27 05:03] LABS: AUTOMATED BASOPHIL 0.6 % (0-2); AUTOMATED EOSINOPHIL 2.5 % (0-5); AUTOMATED LYMPH 23.4 % (17-44); AUTOMATED MONOCYTE 9.9 % (3-10); AUTOMATED NEUTROPHIL 63.6 % (45-76)
[2016-02-27 05:12] LABS: BLOOD UREA NITROGEN 4 MG/DL (7-17); CALCIUM 8.1 MG/DL (8.4-10.2); CALCULATED OSMOLALITY 254 MOs/Kg (270-290); CHLORIDE 106 mEq/L (98-107); GLUCOSE 85 MG/DL (70-99); SODIUM LEVEL 134 mEq/L (137-146)
[2016-02-27] MEDS: SODIUM CHLORIDE 0.9% 3 ML FLUSH FLUSH SCH (05:23)
[2016-02-27] MEDS ORDERED: KCL 20 mEq/100 ml Premix Run 20 MEQ/100 ML RTU IV ONE (07:30)
[2016-02-27] MEDS ORDERED: POTASSIUM CHLORIDE 20 MEQ TAB PO SCH (07:30)
[2016-02-27 08:10] VITALS: BP 136/82; TEMP 98.1
[2016-02-27] MEDS: METOPROLOL TARTRATE 100 MG TAB PO SCH (08:50)
[2016-02-27] MEDS ORDERED: BuPROPion 150 MG SR TAB PO SCH (09:00)
[2016-02-27 11:10] VITALS: PULSE 92
[2016-02-27] MEDS ORDERED: VITAMINS,PRENATAL TABLET PO SCH (12:00)
[2016-02-27] MEDS ORDERED: THIAMINE 100 MG TAB PO SCH (12:00)
--- NOTE | 2016-02-27 13:08 | PCM.DCS92 ---
- Final/Secondary Discharge Diagnosis (1) Alcoholic pancreatitis Resolved K85.20 - ALCOHOL INDUCED ACUTE PANCREATITIS WITHOUT NECROSIS OR INFCT acute unspecified K85.20 - Alcohol induced acute pancreatitis without necrosis or infection Comment: Continue pain control and hydration advance diet as tolerated. (2) Alcohol withdrawal syndrome Resolved F10.239 - ALCOHOL DEPENDENCE WITH WITHDRAWAL, UNSPECIFIED Present on Admission: Yes with unspecified complication F10.239 - Alcohol dependence with withdrawal, unspecified Comment: Continue alcohol withdrawal protocol. Vital signs stabilizing. (3) Alcoholic ketoacidosis Resolved E87.2 - ACIDOSIS Present on Admission: Yes Comment: Resolving. (4) Hypertensive urgency Resolved I16.0 - HYPERTENSIVE URGENCY Present on Admission: Yes Comment: Stable and improved. (5) Diabetes mellitus type 2 Active E11.9 - TYPE 2 DIABETES MELLITUS WITHOUT COMPLICATIONS Present on Admission: Yes Comment: Continue treatment with home medication and plan (6) Tobacco user Active Z72.0 - TOBACCO USE Present on Admission: Yes Comment: Patient counseled throughout the hospitalization to quit smoking for a total of 12 minutes. (7) Alcohol abuse Acute F10.10 - ALCOHOL ABUSE, UNCOMPLICATED Present on Admission: Yes Comment: Patient needs to quit alcohol immediately. Discussed with her at length. She verbalized understanding that alcohol is causing her pancreatitis. Discharge Disposition: Home Discharge Condition: Improved Cognitive Discharge Status: Unimpaired Fuctional Discharge Status: Independent Physician Follow up/Referrals: SONNY COOLEY [NonStaff] - 03/09/16 10:00 am Home Medications / New Prescriptions: New CloNIDine (Antihypertensive) [Catapres] 0.1 mg PO Q6 #120 tablet Folic Acid [Folvite] 1 mg IV Q24H #100 ml POTASSIUM CHLORIDE Tablet [K-DUR 20 mEq Tablet*] 20 meq PO BID(MARGIE) #60 tab.er.prt Metoprolol Tartrate [Lopressor] 100 mg PO BID #60 tablet Nicotine [Nicoderm] 21 mg TOP Q24H #30 pat Oxycodone HCl [Oxaydo] 5 mg PO Q6 PRN #20 tablet.orl PRN Reason: pain Vitamins, [ Vitamin] 1 tab PO DAILY@1200 #100 tablet Thiamine [Thiamine, Vitamin B-1] 100 mg PO DAILY@1200 #100 tablet BuPROPion (BID formulation) [Wellbutrin-Sr] 150 mg PO BID #60 tab.sr.12h Discharge Home Medication List BuPROPion (BID formulation) [Wellbutrin-Sr] 150 mg PO BID #60 tab.sr.12h [Rx] CloNIDine (Antihypertensive) [Catapres] 0.1 mg PO Q6 #120 tablet 02/27/16 [Rx] Folic Acid [Folvite] 1 mg IV Q24H #100 ml 02/27/16 [Rx] Metoprolol Tartrate [Lopressor] 100 mg PO BID #60 tablet 02/27/16 [Rx] Nicotine [Nicoderm] 21 mg TOP Q24H #30 pat 02/27/16 [Rx] Oxycodone HCl [Oxaydo] 5 mg PO Q6 PRN #20 tablet.orl 02/27/16 [Rx] POTASSIUM CHLORIDE Tablet [K-DUR 20 mEq Tablet*] 20 meq PO BID(MARGIE) #60 tab.er.prt 02/27/16 [Rx] Thiamine [Thiamine, Vitamin B-1] 100 mg PO DAILY@1200 #100 tablet 02/27/16 [Rx] Vitamins, [ Vitamin] 1 tab PO DAILY@1200 #100 tablet 02/27/16 [ Rx] New Discharge Medications (Rx) BuPROPion (BID formulation) [Wellbutrin-Sr] 150 mg PO BID #60 tab.sr.12h [Rx] CloNIDine (Antihypertensive) [Catapres] 0.1 mg PO Q6 #120 tablet 02/27/16 [Rx] Folic Acid [Folvite] 1 mg IV Q24H #100 ml 02/27/16 [Rx] Metoprolol Tartrate [Lopressor] 100 mg PO BID #60 tablet 02/27/16 [Rx] Nicotine [Nicoderm] 21 mg TOP Q24H #30 pat 02/27/16 [Rx] Oxycodone HCl [Oxaydo] 5 mg PO Q6 PRN #20 tablet.orl 02/27/16 [Rx] POTASSIUM CHLORIDE Tablet [K-DUR 20 mEq Tablet*] 20 meq PO BID(MARGIE) #60 tab.er.prt 02/27/16 [Rx] Thiamine [Thiamine, Vitamin B-1] 100 mg PO DAILY@1200 #100 tablet 02/27/16 [Rx] Vitamins, [ Vitamin] 1 tab PO DAILY@1200 #100 tablet 02/27/16 [ Rx] O2 Device: Room Air Diet at Discharge: As Tolerated, [place] Activity: No Restrictions, As Tolerated Call Office For: Worsening Symptoms, Fever over 100.5, Pain Uncontrolled By Meds Discontinue use of:: Alcohol, All Types of Tobacco - DC Summary Notes Hospital Course Note:: Discharge summary on patient named JAYLENE AGUILAR admitted to [facility] on 02/24/16 by Emmie Ricks MD. Date of discharge is []. 45-year-old female who is been drinking a 12 pack of beer for several years presents to emergency department complaining of abdominal pain. She has a long history of pancreatitis. She was found to have acute pancreatitis with elevated lipase. She was admitted into the hospital given IV fluids and IV pain medicines and her pain slowly resolved. At this point patient has been able to the eat 2 meals today of regular food and feels that she is ready for discharge home. Patient has reached maximal benefit of hospitalization. She is stable for discharge home. Total Time: 45 min - Physical Exam Vital Signs: Last Vital Signs Temp 98.1 F 02/27/16 08:09 Pulse 92 02/27/16 11:00 Resp 20 02/27/16 08:09 BP 136/82 02/27/16 08:09 Pulse Ox 97 02/27/16 08:09 Oxygen Pulse Oxygen Saturation 97 O2 Device Room Air Oxygen Flow Rate 2 Fraction of Inspired Oxygen ( FIO2) Constitutional: Distress (Moderate discomfort). negative: Well nourished, Well appearing Oriented to: Time, Person, Place - HEENT Head: Normal (normocephalic, atraumatic.), Other (No cervical lymphadenopathy. No supraclavicular lymphadenopathy. Neck: No palpable mass, supple , trachea midline.) Eye: Normal (pupils equal, reactive to light, and round; EOMI, Sclera white) Oropharynx: Normal (Pharynx: Moist without exudate,Gums-no swelling, No oropharyngeal lesions or erythema, Mucous membranes are dry.) Tympanic Membrane: Normal (no discharge) ENT EAC: Normal (No oropharyngeal lesions or erythema. Mucous membranes are dry. ) TMJ: Normal Nose: No Symptoms Reported (septum midline, Nares patent, without discharge or bleeding.) - Respiratory/Cardiovascular Respiratory: Normal - CTA (Clear to auscultation bilaterally. No wheezing, rales , rhonchi. Chest wall movements are symmetric. No use of accessory muscles to breathe.) - GI Auscultation: Decreased Palpation: Normal (Soft,non distended,nontender. No hepatosplenomegaly.) Tenderness: Diffuse, Severe, Epigastric [place]'s Sign: Negative - Musculoskeletal Back: Normal (Non-Tender) Extremities: Normal (Normal tone, DP pulses 2+ bilaterally, No cyanosis or edema bilaterally, FROM bilaterally.) - Integumentary Lymphatics: Normal (No cervical lymphadenopathy. No supraclavicular lymphadenopathy.) - Neurologic Memory Impaired: Normal Cerebellar: Normal (Babinski: toes downgoing bilaterally. Intact Finger to nose. Sensory grossly intact to light touch. Intact rapid alternating movements bilaterally. No pronator drift.) Mood Description: Normal (Fully oriented. Normal and appropriate affect.) Perception: Normal (Normal and appropriate affect.) - Other Exam Other Exam Findings: Laboratory Results - last 24 hr 02/26/16 02/26/16 02/27/16 17:20 23:57 04:40 WBC 7.7 RBC 3.65 L Hgb 12.4 D Hct 35.8 L MCV 98 MCH 33.9 H MCHC 34.5 RDW 14.1 Plt Count 152 MPV 9.0 Neut % (Auto) 63.6 Lymph % (Auto) 23.4 [place] % (Auto) 9.9 Eos % (Auto) 2.5 Baso % (Auto) 0.6 Absolute Neuts (auto) 4.85 Absolute Lymphs (auto) 1.77 Sodium Potassium Chloride Carbon Dioxide Anion Gap BUN Creatinine Estimated GFR (MDRD) Glucose POC Capillary Glucose 95 91 Calculated Osmolality Calcium Magnesium Lipase 02/27/16 02/27/16 04:40 06:42 WBC RBC Hgb Hct MCV MCH MCHC RDW Plt Count MPV Neut % (Auto) Lymph % (Auto) [place] % (Auto) Eos % (Auto) Baso % (Auto) Absolute Neuts (auto) Absolute Lymphs (auto) Sodium 134 L Potassium 3.3 L Chloride 106 Carbon Dioxide 21 L Anion Gap 10 BUN 4 L Creatinine 0.50 L Estimated GFR (MDRD) > 60 Glucose 85 POC Capillary Glucose 92 Calculated Osmolality 254 L Calcium 8.1 L Magnesium 1.70 Lipase 342 H
== END 2016-02-27 14:09 | disposition home or self-care (01) | DRG 439 ==
LOC: ED 08:11 → PCU 12:31
PROVIDERS: ADMIT Hospitalist; ATTEND Hospitalist
DX: K85.20 Alcohol induced acute pancreatitis without necrosis or infection (principal); F10.239 Alcohol dependence with withdrawal, unspecified; E87.2 Acidosis; F10.288 Alcohol dependence with other alcohol-induced disorder; J44.9 Chronic obstructive pulmonary disease, unspecified; E11.9 Type 2 diabetes mellitus without complications; F17.210 Nicotine dependence, cigarettes, uncomplicated; I16.0 Hypertensive urgency; Z71.41 Alcohol abuse counseling and surveillance of alcoholic; Z71.6 Tobacco abuse counseling
CPT/HCPCS: 36415; 80048; 80053; 80307; 81001; 82962; 83615; 83690; 83735; 84100; 85025; 93005; 94640; 96361; 96372; 96374; 96375; 96376; 99281; 99285; 99406; A9153; G0237; J0360; J1170; J1650; J2060; J2270; J2405; J3360; J3411; J3480; J3490; J7620; S0164